=== PATIENT | female | born 1975 ===

== ENCOUNTER 2017-01-12 12:43 | Emergency (ER) | payer OTHER ==
[2017-01-12 13:03] VITALS: BP 119/66; PULSE 71; RESP 18; TEMP 97.6; O2SAT 100
--- NOTE | 2017-01-12 13:30 | ED PDOC ---
HPI: Nose Bleed Time Seen by Provider: 01/12/17 12:59 Chief Complaint (Nursing): ENT Problem Chief Complaint (Provider): nose itching History Per: Patient, Customer Logistics Manager (nurse, Kaity) Additional Complaint(s): 3 weeks ago smelled toxic insect spray fumes since with itching to b/l nares. no bleeding, no RIVERA no fever no sore throat. tried OTC saline nasal spray-not effective. Past Medical History Reviewed: Historical Data, Nursing Documentation, Vital Signs Vital Signs: Last Vital Signs Temp 97.6 F 01/12/17 12:58 Pulse 71 01/12/17 12:58 Resp 18 01/12/17 12:58 BP 119/66 01/12/17 12:58 Pulse Ox 100 01/12/17 12:58 - Medical History PMH: Gastritis Denies: HIV, Chronic Kidney Disease - Family History Family History: States: No Known Family Hx - Home Medications Home Medications: Ambulatory Orders Medication Instructions Recorded Fexofenadine/Pseudoephedrine 1 each PO DAILY #20 tab.er.24h 01/12/17 [Peg-D 24 Hour Tablet] Mometasone Furoate [Nasonex] 1 - 2 spray NS BID #1 spray.pump 01/12/17 - Allergies Allergies/Adverse Reactions: Allergies Allergy/AdvReac Type Severity Reaction Status Date / Time No Known Allergies Allergy Verified 02/20/16 19:06 Review of Systems ROS Statement: Except As Marked, All Systems Reviewed And Found Negative Constitutional: Negative for: Fever, Chills ENT: Positive for: Mouth Pain Physical Exam - Reviewed Nursing Documentation Reviewed: Yes Vital Signs Reviewed: Yes - Physical Exam Appears: Positive for: Well, Non-toxic, No Acute Distress Skin: Positive for: Normal Color, Warm, DRY ENT: Positive for: Normal ENT Inspection, Other (b/l nares: no lesion, no ertyhema. turbinates mildly swollen. ). Negative for: Sinus Pain/Drainage, Nasal Congestion, Pharyngeal Erythema, Tonsillar Exudate, Tonsillar Swelling Neurologic/Psych: Positive for: Alert, Oriented - ECG O2 Sat by Pulse Oximetry: 100 Medical Decision Making Medical Decision Making: dx: rhinitis tx: Rx nasonex and allegera. advised to f.u with ENT. Disposition - Clinical Impression Clinical Impression: Rhinitis - Patient ED Disposition Is Patient to be Admitted: No Counseled Patient/Family Regarding: Diagnosis, Need For Followup, Rx Given - Disposition Referrals: [facility] [Outside] [facility] [Outside] Disposition: Routine/Home Disposition Time: 13:32 Condition: STABLE Prescriptions: Fexofenadine/Pseudoephedrine [Peg-D 24 Hour Tablet] 1 each PO DAILY #20 tab.er.24h Mometasone Furoate [Nasonex] 1 - 2 spray NS BID #1 spray.pump Instructions: Allergic Rhinitis (ED) Print Language: KOREAN
== END 2017-01-12 14:20 | disposition home or self-care (01) ==
LOC: H.ER 12:43
DX: J30.9 Allergic rhinitis, unspecified (principal)